=== PATIENT | male | born 1975 | race American Indian/Alaskan Native ===

== ENCOUNTER 2019-01-26 08:44 | Emergency (ER) | payer SELFPAY ==
[2019-01-26 08:51] VITALS: BP 122/82
[2019-01-26] MEDS ORDERED: ALBUTEROL 2.5 MG/3 ML NEBU IH ONE (09:11)
--- NOTE | 2019-01-26 09:35 | Emergency Department Report ---
ED General Adult HPI - General Chief complaint: Upper Respiratory Infection Stated complaint: CHEST PAIN/RT KNEE PAIN/COUGH Time Seen by Provider: 01/26/19 09:06 Source: patient, EMS Mode of arrival: Ambulatory Limitations: No Limitations - History of Present Illness Initial comments: She is a 43-year-old male who presents with cough and chest pain for the last 3 weeks patient states that he's and out of his asthma medication patient's cough is moderate nothing makes it better and nothing makes it worse. Patient also has been having productive yellow mucus when he coughs. Patient also is complaining of right knee pain and swelling that's been going on since he was 17. He states that he was supposed to get surgery on it some years ago but he did not have any surgery on his knee. - Related Data Previous Rx's Medication Instructions Recorded Last Taken Type ALBUTEROL Inhaler (OR & NICU) 1 puff IH Q6H #1 inha 01/26/19 Unknown Rx [ProAir HFA Inhaler] ALBUTEROL NEB's [Proventil 0.083% 2.5 mg IH TID PRN #1 box 01/26/19 Unknown Rx NEBS] Nebulizer and Compressor [[place] 1 each MC Q6HR #1 each 01/26/19 Unknown Rx Choice Nebulizer] predniSONE [Deltasone] 20 mg PO BID #10 tab 01/26/19 Unknown Rx Allergies Allergy/AdvReac Type Severity Reaction Status Date / Time No Known Allergies Allergy Unverified 01/26/19 08:46 ED Review of Systems ROS: Stated complaint: CHEST PAIN/RT KNEE PAIN/COUGH Other details as noted in HPI Constitutional: denies: chills, fever Eyes: denies: eye pain, eye discharge, vision change ENT: denies: ear pain, throat pain Respiratory: cough, shortness of breath. denies: wheezing Cardiovascular: denies: chest pain, palpitations Endocrine: no symptoms reported Gastrointestinal: denies: abdominal pain, nausea, diarrhea Genitourinary: denies: urgency, dysuria Musculoskeletal: joint swelling. denies: back pain, arthralgia Skin: denies: rash, lesions Neurological: denies: headache, weakness, paresthesias Psychiatric: denies: anxiety, depression Hematological/Lymphatic: denies: easy bleeding, easy bruising ED Past Medical Hx - Past Medical History Previous Medical History?: Yes Hx Hypertension: Yes Hx Asthma: Yes - Surgical History Past Surgical History?: Yes Additional Surgical History: Abdominal, Carpel tunnel yony.,Yony leg - Social History Smoking Status: Current Every Day Smoker Substance Use Type: Alcohol, Prescribed - Medications Home Medications: Home Medications Medication Instructions Recorded Confirmed Last Taken Type ALBUTEROL Inhaler (OR & NICU) 1 puff IH Q6H #1 inha 01/26/19 Unknown Rx [ProAir HFA Inhaler] ALBUTEROL NEB's [Proventil 0.083% 2.5 mg IH TID PRN #1 box 01/26/19 Unknown Rx NEBS] Nebulizer and Compressor [[place] 1 each MC Q6HR #1 each 01/26/19 Unknown Rx Choice Nebulizer] predniSONE [Deltasone] 20 mg PO BID #10 tab 01/26/19 Unknown Rx ED Physical Exam - General Limitations: No Limitations General appearance: alert, in no apparent distress - Head Head exam: Present: atraumatic, normocephalic - Eye Eye exam: Present: normal appearance - ENT ENT exam: Present: mucous membranes moist - Neck Neck exam: Present: normal inspection - Respiratory Respiratory exam: Present: normal lung sounds bilaterally. Absent: respiratory distress - Cardiovascular Cardiovascular Exam: Present: regular rate, normal rhythm. Absent: systolic murmur, diastolic murmur, rubs, gallop - GI/Abdominal GI/Abdominal exam: Present: soft, normal bowel sounds - Rectal Rectal exam: Present: deferred - Extremities Exam Extremities exam: Present: normal inspection - Back Exam Back exam: Present: normal inspection - Neurological Exam Neurological exam: Present: alert, oriented X3 - Psychiatric Psychiatric exam: Present: normal affect, normal mood - Skin Skin exam: Present: warm, dry, intact, normal color. Absent: rash ED Course Vital Signs 01/26/19 01/26/19 08:46 10:39 Temperature 97.9 F Pulse Rate 86 Pulse Rate [ 86 Anterior Bilateral Throughout] Respiratory 18 Rate Respiratory 19 Rate [Anterior Bilateral Throughout] Blood Pressure 122/82 O2 Sat by Pulse 99 Oximetry ED Medical Decision Making - Lab Data Result diagrams: 01/26/19 09:17 01/26/19 09:17 Lab Results 01/26/19 01/26/19 Range/Units 09:17 09:17 WBC 5.5 (4.5-11.0) K/mm3 RBC 4.89 (3.65-5.03) M/mm3 Hgb 13.4 (11.8-15.2) gm/dl Hct 40.8 (35.5-45.6) % MCV 84 (84-94) fl MCH 27 L (28-32) pg MCHC 33 (32-34) % RDW 20.6 H (13.2-15.2) % Plt Count 145 (140-440) K/mm3 Lymph % (Auto) 45.5 H (13.4-35.0) % Mcmullen % (Auto) 8.5 H (0.0-7.3) % Eos % (Auto) 1.4 (0.0-4.3) % Baso % (Auto) 0.4 (0.0-1.8) % Lymph # 2.5 (1.2-5.4) K/mm3 Mcmullen # 0.5 (0.0-0.8) K/mm3 Eos # 0.1 (0.0-0.4) K/mm3 Baso # 0.0 (0.0-0.1) K/mm3 Seg Neutrophils % 44.2 (40.0-70.0) % Seg Neutrophils # 2.4 (1.8-7.7) K/mm3 Sodium 142 (137-145) mmol/L Potassium 4.3 (3.6-5.0) mmol/L Chloride 104.6 (98-107) mmol/L Carbon Dioxide 21 L (22-30) mmol/L Anion Gap 21 mmol/L BUN 13 (9-20) mg/dL Creatinine 0.7 L (0.8-1.5) mg/dL Estimated GFR > 60 ml/min BUN/Creatinine Ratio 19 % Glucose 81 (75-100) mg/dL Calcium 8.9 (8.4-10.2) mg/dL Total Bilirubin 0.30 (0.1-1.2) mg/dL AST 36 (5-40) units/L ALT 25 (7-56) units/L Alkaline Phosphatase 76 (35-129) units/L Troponin T < 0.010 (0.00-0.029) ng/mL Total Protein 8.5 H (6.3-8.2) g/dL Albumin 4.5 (3.9-5) g/dL Albumin/Globulin Ratio 1.1 % - EKG Data -: EKG Interpreted by Me - EKG Data 01/26/19 11:06 EKG shows normal sinus rhythm signs of early re-pole no ST segment elevation no T wave inversion impression normal EKG - Radiology Data Radiology results: report reviewed, image reviewed Chest x-ray: Shows no acute cardiopulmonary disease Knee x-ray: Shows 2 linear radiopaque bodies however no fracture or dislocation - Medical Decision Making Chief medical diagnosis: Bronchitis Differential medical diagnosis: Pneumonia, non-STEMI, osteoarthritis I will get x-rays of knee, blood work, I'll get chest x-ray BREATHING treatment also give patient prednisone and I'll send patient home with medication refills. Blood work is unremarkable she agrees with plan to discharge. Additional verbal discharge instructions were given. Critical care attestation.: If time is entered above; I have spent that time in minutes in the direct care of this critically ill patient, excluding procedure time. ED Disposition Clinical Impression: Cough, SOB (shortness of breath) Right knee pain Qualifiers: Chronicity: chronic Qualified Code(s): M25.561 - Pain in right knee; G89.29 - Other chronic pain Disposition: DC-01 TO HOME OR SELFCARE Is pt being admited?: No Does the pt Need Aspirin: No Condition: Stable Prescriptions: Nebulizer and Compressor [Bedias Choice Nebulizer] 1 each MC Q6HR #1 each predniSONE [Deltasone] 20 mg PO BID #10 tab ALBUTEROL Inhaler (OR & NICU) [ProAir HFA Inhaler] 1 puff IH Q6H #1 inha ALBUTEROL NEB's [Proventil 0.083% NEBS] 2.5 mg IH TID PRN #1 box PRN Reason: Wheezing Referrals: ROSALIE LIND MD [Staff Physician] - 3-5 Days DYLON MANZANO MD [Referring] - 3-5 Days
--- NOTE | 2019-01-26 10:00 | XRay Report ---
CHEST 2 VIEWS INDICATION / CLINICAL INFORMATION: cough. COMPARISON: Chest x-ray 07/23/2011 FINDINGS: SUPPORT DEVICES: None. HEART / MEDIASTINUM: No significant abnormality. LUNGS / PLEURA: No significant pulmonary or pleural abnormality. No pneumothorax. ADDITIONAL FINDINGS: No significant additional findings. IMPRESSION: 1. No acute findings. Signer Name: Philipp Cortes MD Signed: 01/26/2019 9:56 AM Workstation Name: [email or web address]
--- NOTE | 2019-01-26 10:02 | XRay Report ---
RIGHT KNEE 4 VIEWS INDICATION / CLINICAL INFORMATION: knee pain. COMPARISON: None available. FINDINGS: 2 linear radiopaque 1 bodies are seen within the anterolateral aspect of Hoffa's fat pad. No fracture , dislocation or right knee effusion is present. Signer Name: Philipp Cortes MD Signed: 01/26/2019 9:58 AM Workstation Name: [id number]
[2019-01-26 10:14] LABS: Alanine Aminotransferase 25 units/L (7-56); Albumin 4.5 g/dL (3.9-5); BUN/Creatinine Ratio 19; Blood Urea Nitrogen 13 mg/dL (9-20); Calcium 8.9 mg/dL (8.4-10.2); Hemolysis Index 0
[2019-01-26 10:23] LABS: Basophils % (Auto) 0.4 % (0.0-1.8); Eosinophils # (Auto) 0.1 K/mm3 (0.0-0.4); Eosinophils % (Auto) 1.4 % (0.0-4.3); Hematocrit 40.8 % (35.5-45.6); Hemoglobin 13.4 gm/dl (11.8-15.2); Lymphocytes # (Auto) 2.5 K/mm3 (1.2-5.4); Lymphocytes % (Auto) 45.5 % (13.4-35.0); Mean Corpuscular HGB Conc 33 % (32-34); Mean Corpuscular Volume 84 fl (84-94); Monocytes # (Auto) 0.5 K/mm3 (0.0-0.8); Monocytes % (Auto) 8.5 % (0.0-7.3); Red Blood Count 4.89 M/mm3 (3.65-5.03)
[2019-01-26 10:31] LABS: Red Cell Distribution Width 20.6 % (13.2-15.2)
[2019-01-26 10:32] LABS: Platelet Count 145 K/mm3 (140-440)
[2019-01-26] MEDS ORDERED: predniSONE 20 MG TAB PO ONE (11:12)
== END 2019-01-26 12:39 | disposition home or self-care (01) ==
LOC: ED 08:44
DX: R05 Cough (principal); R06.02 Shortness of breath; M25.561 Pain in right knee; G89.29 Other chronic pain
CPT/HCPCS: 36415; 71046; 73562; 80053; 84484; 85025; 93005; 93010; 94644; 99284; J7512

== ENCOUNTER 2019-08-11 21:38 | Emergency (ER) | payer SELFPAY ==
[2019-08-11] MEDS ORDERED: traMADol 50 MG TAB PO ONE (22:14)
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
[2019-08-11] MEDS ORDERED: NEOMY 3.5 MG/BACIT 400 UNITS/POLY B 5000 UNITS/GM OINT PACKET TP ONE (22:30)
[2019-08-11] MEDS ORDERED: SODIUM CHLORIDE 0.9% 1000 ML 1,000 ML IV ONE (22:50)
[2019-08-11] MEDS ORDERED: SODIUM CHLORIDE 0.9% 1000 ML 1,000 ML ONE (22:52)
[2019-08-11 22:59] LABS: Basophils % (Auto) 0.5 % (0.0-1.8); Hematocrit 44.2 % (35.5-45.6); Hemoglobin 14.8 gm/dl (11.8-15.2); Lymphocytes # (Auto) 1.2 K/mm3 (1.2-5.4); Lymphocytes % (Auto) 19.3 % (13.4-35.0); Mean Corpuscular HGB Conc 34 % (32-34); Mean Corpuscular Volume 98 fl (84-94); Monocytes # (Auto) 0.3 K/mm3 (0.0-0.8); Monocytes % (Auto) 5.6 % (0.0-7.3); Platelet Count 136 K/mm3 (140-440); Red Cell Distribution Width 15.8 % (13.2-15.2)
[2019-08-11 23:07] LABS: BUN/Creatinine Ratio 14; Blood Urea Nitrogen 10 mg/dL (9-20); Calcium 9.2 mg/dL (8.4-10.2); Hemolysis Index 5
[2019-08-12] MEDS ORDERED: ONDANSETRON 4 MG/2 ML INJ IV ONE (00:07)
[2019-08-12 00:59] VITALS: BP 151/94
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
== END 2019-08-12 01:38 | disposition home or self-care (01) ==
LOC: ED 21:38
DX: S60.512A Abrasion of left hand, initial encounter (principal); S20.219A Contusion of unspecified front wall of thorax, initial encounter; S30.1XXA Contusion of abdominal wall, initial encounter; I10 Essential (primary) hypertension; J45.909 Unspecified asthma, uncomplicated; F17.200 Nicotine dependence, unspecified, uncomplicated; Z98.890 Other specified postprocedural states; Z79.899 Other long term (current) drug therapy; V89.2XXA Person injured in unspecified motor-vehicle accident, traffic, initial encounter; Y93.89 Activity, other specified; Y92.410 Unspecified street and highway as the place of occurrence of the external cause; Y99.8 Other external cause status
CPT/HCPCS: 36415; 71260; 74160; 80048; 85025; 93005; 96374; 99284; J2405; J7030; Q9967; A6250

== ENCOUNTER 2019-09-10 11:43 | Emergency (ER) | payer SELFPAY ==
[2019-09-10 12:08] VITALS: BP 164/112
== END 2019-09-10 13:45 | disposition left against medical advice (07) ==
LOC: ED 11:43
DX: M25.542 Pain in joints of left hand (principal); Z53.21 Procedure and treatment not carried out due to patient leaving prior to being seen by health care provider

== ENCOUNTER 2020-01-12 00:05 | Emergency (ER) | payer SELFPAY ==
[2020-01-12] MEDS ORDERED: ONDANSETRON 4 MG/2 ML INJ IV ONE (00:34)
[2020-01-12] MEDS ORDERED: HYDROmorphone 1 MG/1 ML INJ IV ONE ×2 (00:45→02:08)
[2020-01-12 01:02] LABS: Basophils % (Auto) 0.9 % (0.0-1.8); Eosinophils % (Auto) 0.7 % (0.0-4.3); Hematocrit 39.7 % (35.5-45.6); Hemoglobin 13.5 gm/dl (11.8-15.2); Lymphocytes % (Auto) 41.9 % (13.4-35.0); Mean Corpuscular HGB Conc 34 % (32-34); Mean Corpuscular Volume 100 fl (84-94); Monocytes # (Auto) 0.6 K/mm3 (0.0-0.8); Monocytes % (Auto) 12.2 % (0.0-7.3); Platelet Count 153 K/mm3 (140-440); Red Blood Count 3.97 M/mm3 (3.65-5.03); Red Cell Distribution Width 15.2 % (13.2-15.2)
[2020-01-12] MEDS ORDERED: THIAMINE 100 MG, FOLIC ACID 1 MG, MULTIPLE VITAMIN INJ, ADULT 10 ML in SODIUM CHLORIDE ... IV ONE (01:15)
[2020-01-12 01:17] LABS: Alanine Aminotransferase 125 units/L (7-56); Albumin 4.6 g/dL (3.9-5); Blood Urea Nitrogen 8 mg/dL (9-20); Calcium 9.3 mg/dL (8.4-10.2); Hemolysis Index 3
[2020-01-12 01:18] LABS: BUN/Creatinine Ratio 13
[2020-01-12] MEDS ORDERED: MAGNESIUM SULFATE 2 GM/50 ML BAG IV ONE (01:27)
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
[2020-01-12 01:37] LABS: Bilirubin,Urine NEG (Negative); Blood,Urine SM (Negative); Color,Urine Colorless (Yellow); Protein,Urine <15 mg/dL mg/dL (Negative); Urobilinogen,Urine < 2.0 mg/dL (<2.0); WBC,Urine < 1.0 /HPF (0.0-6.0)
[2020-01-12 01:44] LABS: Amphetamine Screen,Urine PRESUMPTIVE NEGATIVE; Benzodiazepines Screen,Urine PRESUMPTIVE NEGATIVE; Cannabinoid Screen,Urine PRESUMPTIVE NEGATIVE; Cocaine Screen,Urine PRESUMPTIVE NEGATIVE; Methadone Screen,Urine PRESUMPTIVE NEGATIVE; Opiate Screen,Urine PRESUMPTIVE NEGATIVE
[2020-01-12 01:50] LABS: RBC,Urine < 1.0 /HPF (0.0-6.0)
--- NOTE | 2020-01-12 01:59 | Emergency Department Report ---
ED Abdominal Pain HPI - General Chief Complaint: Abdominal Pain Stated Complaint: ABDOMINAL PAIN Time Seen by Provider: 01/12/20 00:29 Source: EMS Mode of arrival: Stretcher Limitations: No Limitations - History of Present Illness Initial Comments: 44-year-old male with a past medical history of alcohol abuse with liver cirrhosis, peptic ulcer disease enlarged heart, previous abdominal surgeries to "reconstruct his insides due to constipation", asthma, and hypertension presents to the hospital complaining of ongoing abdominal pain with intermittent nausea vomiting x1 month that worsened tonight. Patient denies hematemesis but states he has noticed black stool. Symptoms have been ongoing since trying to taper down his alcohol use. Patient is also being managed by a physician at [facility] and was prescribed medication to assist with alcohol detox. Patient could not tolerate the medication and continued to have nausea and vomiting. 1 week ago they prescribed a sublingual medication for detox symptoms but patient has yet to fill the medication. Tonight pain worsened and he complains of generalized abdominal pain it is constant, severe, worse with palpation. He had 2 cups of liquor and 1 beer prior to arrival. He was told by his doctor to decrease his alcohol intake but to drink whenever he has symptoms of withdrawal. Patient denies diagnosis of pancreatitis in the past. - Related Data Previous Rx's Medication Instructions Recorded Last Taken Type ALBUTEROL NEB's [Proventil 0.083% 2.5 mg IH TID PRN #1 box 01/26/19 Unknown Rx NEBS] Albuterol Mdi (or & Nicu Only) 1 puff IH Q6H #1 inha 01/26/19 Unknown Rx [ProAir HFA Inhaler] Nebulizer and Compressor [[place] 1 each MC Q6HR #1 each 01/26/19 Unknown Rx Choice Nebulizer] predniSONE [Deltasone] 20 mg PO BID #10 tab 01/26/19 Unknown Rx Cyclobenzaprine [Flexeril] 10 mg PO QHS PRN #10 tablet 08/12/19 Unknown Rx Naproxen 500 mg PO Q12H PRN #12 tablet 08/12/19 Unknown Rx traMADoL [Ultram] 50 mg PO Q6HR PRN #7 tablet 10/25/19 Unknown Rx Famotidine [Pepcid] 20 mg PO BID #20 tablet 01/12/20 Unknown Rx HYDROcodone/APAP 5-325 [[place] 1 each PO Q6HR PRN #10 tablet 01/12/20 Unknown Rx 5/325] Ondansetron [Zofran Odt] 4 mg PO Q8HR PRN #20 tab.rapdis 01/12/20 Unknown Rx Allergies Allergy/AdvReac Type Severity Reaction Status Date / Time No Known Allergies Allergy Unverified 01/26/19 08:46 ED Review of Systems ROS: Stated complaint: ABDOMINAL PAIN Other details as noted in HPI Comment: All other systems reviewed and negative ED Past Medical Hx - Past Medical History Previous Medical History?: Yes Hx Hypertension: Yes Hx Liver Disease: Yes (cirrohsis) Hx Asthma: Yes Additional medical history: enlarged heart. liver problems. carpal tunnel - Surgical History Past Surgical History?: Yes Additional Surgical History: Abdominal, Carpel tunnel yony.,Yony leg - Social History Smoking Status: Current Every Day Smoker Substance Use Type: Alcohol - Medications Home Medications: Home Medications Medication Instructions Recorded Confirmed Last Taken Type ALBUTEROL NEB's [Proventil 0.083% 2.5 mg IH TID PRN #1 box 01/26/19 Unknown Rx NEBS] Albuterol Mdi (or & Nicu Only) 1 puff IH Q6H #1 inha 01/26/19 Unknown Rx [ProAir HFA Inhaler] Nebulizer and Compressor [[place] 1 each MC Q6HR #1 each 01/26/19 Unknown Rx Choice Nebulizer] predniSONE [Deltasone] 20 mg PO BID #10 tab 01/26/19 Unknown Rx Cyclobenzaprine [Flexeril] 10 mg PO QHS PRN #10 tablet 08/12/19 Unknown Rx Naproxen 500 mg PO Q12H PRN #12 tablet 08/12/19 Unknown Rx traMADoL [Ultram] 50 mg PO Q6HR PRN #7 tablet 10/25/19 Unknown Rx Famotidine [Pepcid] 20 mg PO BID #20 tablet 01/12/20 Unknown Rx HYDROcodone/APAP 5-325 [[place] 1 each PO Q6HR PRN #10 tablet 01/12/20 Unknown Rx 5/325] Ondansetron [Zofran Odt] 4 mg PO Q8HR PRN #20 tab.rapdis 01/12/20 Unknown Rx ED Physical Exam - General Limitations: No Limitations - Other Other exam information: General: No acute distress Head: Atraumatic Eyes: normal appearance, nonicteric sclera ENT: Moist mucous membranes Neck: Normal appearance, no midline tenderness Chest: Clear to auscultation bilaterally CV: Regular rate and rhythm Abdomen: Soft, normal bowel sounds, lower abdominal scar noted from previous surgery. Generalized abdominal tenderness, nondistended, no rebound or guarding Rectal: Guaiac negative brown stool Back: Normal inspection Extremity: Normal inspection, full range of motion Neuro: Alert O x 3, no facial asymmetry, speech clear, no gross motor sensory de ficit Psych: Appropriate behavior Skin: No rash ED Course Vital Signs 01/12/20 01/12/20 00:17 02:04 Temperature 98.2 F Pulse Rate 83 89 Respiratory 15 16 Rate Blood Pressure 167/107 154/80 [left arm] O2 Sat by Pulse 98 95 Oximetry ED Medical Decision Making - Lab Data Result diagrams: 01/12/20 00:43 01/12/20 00:43 Lab Results 01/12/20 01/12/20 01/12/20 Range/Units 00:43 00:43 00:43 WBC 4.7 (4.5-11.0) K/mm3 RBC 3.97 (3.65-5.03) M/mm3 Hgb 13.5 (11.8-15.2) gm/dl Hct 39.7 (35.5-45.6) % MCV 100 H (84-94) fl MCH 34 H (28-32) pg MCHC 34 (32-34) % RDW 15.2 (13.2-15.2) % Plt Count 153 (140-440) K/mm3 Lymph % (Auto) 41.9 H (13.4-35.0) % [place] % (Auto) 12.2 H (0.0-7.3) % Eos % (Auto) 0.7 (0.0-4.3) % Baso % (Auto) 0.9 (0.0-1.8) % Lymph # 2.0 (1.2-5.4) K/mm3 [place] # 0.6 (0.0-0.8) K/mm3 Eos # 0.0 (0.0-0.4) K/mm3 Baso # 0.0 (0.0-0.1) K/mm3 Seg Neutrophils % 44.3 (40.0-70.0) % Seg Neutrophils # 2.1 (1.8-7.7) K/mm3 Sodium 145 (137-145) mmol/L Potassium 4.1 (3.6-5.0) mmol/L Chloride 104.6 (98-107) mmol/L Carbon Dioxide 26 (22-30) mmol/L Anion Gap 19 mmol/L BUN 8 L (9-20) mg/dL Creatinine 0.6 L (0.8-1.3) mg/dL Estimated GFR > 60 ml/min BUN/Creatinine Ratio 13 % Glucose 87 (75-100) mg/dL POC Glucose (70-105) Calcium 9.3 (8.4-10.2) mg/dL Magnesium 1.60 L (1.7-2.3) mg/dL Total Bilirubin 0.30 (0.1-1.2) mg/dL AST 131 H (5-40) units/L ALT 125 H (7-56) units/L Alkaline Phosphatase 74 (35-129) units/L Total Protein 7.8 (6.3-8.2) g/dL Albumin 4.6 (3.9-5) g/dL Albumin/Globulin Ratio 1.4 % Lipase 65 H (13-60) units/L Urine Color (Yellow) Urine Turbidity (Clear) Urine pH (5.0-7.0) Ur Specific [place] (1.003-1.030) Urine Protein (Negative) mg/dL Urine Glucose (UA) (Negative) mg/dL Urine Ketones (Negative) mg/dL Urine Blood (Negative) Urine Nitrite (Negative) Urine Bilirubin (Negative) Urine Urobilinogen (<2.0) mg/dL Ur Leukocyte Esterase (Negative) Urine WBC (Auto) (0.0-6.0) /HPF Urine RBC (Auto) (0.0-6.0) /HPF Urine Opiates Screen Urine Methadone Screen Ur Barbiturates Screen Ur Phencyclidine Scrn Ur Amphetamines Screen U Benzodiazepines Scrn Urine Cocaine Screen U Marijuana (THC) Screen Drugs of Abuse Note Plasma/Serum Alcohol 0.34 H (0-0.07) % 01/12/20 01/12/20 01/12/20 Range/Units 00:53 Unknown Unknown WBC (4.5-11.0) K/mm3 RBC (3.65-5.03) M/mm3 Hgb (11.8-15.2) gm/dl Hct (35.5-45.6) % MCV (84-94) fl MCH (28-32) pg MCHC (32-34) % RDW (13.2-15.2) % Plt Count (140-440) K/mm3 Lymph % (Auto) (13.4-35.0) % [place] % (Auto) (0.0-7.3) % Eos % (Auto) (0.0-4.3) % Baso % (Auto) (0.0-1.8) % Lymph # (1.2-5.4) K/mm3 [place] # (0.0-0.8) K/mm3 Eos # (0.0-0.4) K/mm3 Baso # (0.0-0.1) K/mm3 Seg Neutrophils % (40.0-70.0) % Seg Neutrophils # (1.8-7.7) K/mm3 Sodium (137-145) mmol/L Potassium (3.6-5.0) mmol/L Chloride (98-107) mmol/L Carbon Dioxide (22-30) mmol/L Anion Gap mmol/L BUN (9-20) mg/dL Creatinine (0.8-1.3) mg/dL Estimated GFR ml/min BUN/Creatinine Ratio % Glucose (75-100) mg/dL POC Glucose 72 (70-105) Calcium (8.4-10.2) mg/dL Magnesium (1.7-2.3) mg/dL Total Bilirubin (0.1-1.2) mg/dL AST (5-40) units/L ALT (7-56) units/L Alkaline Phosphatase (35-129) units/L Total Protein (6.3-8.2) g/dL Albumin (3.9-5) g/dL Albumin/Globulin Ratio % Lipase (13-60) units/L Urine Color Colorless (Yellow) Urine Turbidity Clear (Clear) Urine pH 6.0 (5.0-7.0) Ur Specific [place] 1.002 L (1.003-1.030) Urine Protein <15 mg/dl (Negative) mg/dL Urine Glucose (UA) Neg (Negative) mg/dL Urine Ketones Neg (Negative) mg/dL Urine Blood Sm (Negative) Urine Nitrite Neg (Negative) Urine Bilirubin Neg (Negative) Urine Urobilinogen < 2.0 (<2.0) mg/dL Ur Leukocyte Esterase Neg (Negative) Urine WBC (Auto) < 1.0 (0.0-6.0) /HPF Urine RBC (Auto) < 1.0 (0.0-6.0) /HPF Urine Opiates Screen Presumptive negative Urine Methadone Screen Presumptive negative Ur Barbiturates Screen Presumptive negative Ur Phencyclidine Scrn Presumptive negative Ur Amphetamines Screen Presumptive negative U Benzodiazepines Scrn Presumptive negative Urine Cocaine Screen Presumptive negative U Marijuana (THC) Screen Presumptive negative Drugs of Abuse Note Disclamer Plasma/Serum Alcohol (0-0.07) % - Radiology Data Radiology results: report reviewed CT ABDOMEN AND PELVIS WITHOUT CONTRAST INDICATION: gen abd pain,n,v, etoh abuse and hx of abd surgery. TECHNIQUE: Axial CT images were obtained through the abdomen and pelvis without IV contrast. All CT scans at this location are performed using CT dose reduction for ALARA by means of automated exposure control. COMPARISON: CT abdomen 08/12/2019 FINDINGS: LOWER CHEST: No significant abnormality. LIVER: Moderate decreased attenuation throughout liver characteristic for steatosis. GALLBLADDER: No significant abnormality. BILE DUCTS: No significant abnormality. PANCREAS: No significant abnormality. SPLEEN: No significant abnormality. ADRENALS: No significant abnormality. RIGHT KIDNEY and URETER: No significant abnormality. LEFT KIDNEY and URETER: No significant abnormality. STOMACH and SMALL BOWEL: No significant abnormality. COLON: No anastomotic suture line within rectosigmoid junction. APPENDIX: Normal. PERITONEUM: No free fluid. No free air. No fluid collection. LYMPH NODES: No significant adenopathy. AORTA and ARTERIES: No significant abnormality. IVC and VEINS: No significant abnormality. URINARY BLADDER: No significant abnormality. REPRODUCTIVE ORGANS: No significant abnormality. ADDITIONAL FINDINGS: Small linear ossific density within left paraspinal muscle image 82 measuring 2.4 cm likely represents heterotopic ossification from previous traumatic injury/strain SKELETAL SYSTEM: Nonaggressive fibro-osseous lesion right iliac bone of doubtful clinical significance possibly representing fibrous dysplasia. IMPRESSION: 1. No significant abnormality. 2. Hepatic steatosis. - Medical Decision Making Patient presents to the hospital with ongoing abdominal pain, nausea, and vomiting while trying to decrease alcohol intake. Patient presents to the ED with elevated alcohol level and generalized abdominal pain. No reports of hematemesis but black stool reported. Stool was brown, guaiac negative with a normal H&H. No signs of active bleeding at this time only lab abnormalities are mild hypomagnesemia, elevated LFTs, and very mild elevation in lipase. Patient reports adverse reaction to IV dye therefore CT abdomen pelvis performed without IV contrast. No other acute findings other than hepatic steatosis. Patient feeling much better with ED treatment of Dilaudid, Zofran, IV fluids, magnesium, and IV Pepcid. Patient tolerating fluid intake prior to d/c. BP improved Critical Care Time: No Critical care attestation.: If time is entered above; I have spent that time in minutes in the direct care of this critically ill patient, excluding procedure time. ED Disposition Clinical Impression: Alcohol intoxication, Alcohol abuse, Nausea & vomiting, Abdominal pain Disposition: TO HOME OR SELFCARE Is pt being admited?: No Does the pt Need Aspirin: No Condition: Stable Instructions: Abuse of Alcohol (ED), Abdominal Pain (ED), Acute Nausea and Vomiting (ED) Additional Instructions: Take the medication as prescribed. Follow-up with your doctor or doctor/clinic provided. Return if symptoms worsen as indicated by your discharge instructions. Prescriptions: HYDROcodone/APAP 5-325 [[place] 5/325] 1 each PO Q6HR PRN #10 tablet PRN Reason: Pain Famotidine [Pepcid] 20 mg PO BID #20 tablet Ondansetron [Zofran Odt] 4 mg PO Q8HR PRN #20 tab.rapdis PRN Reason: Nausea And Vomiting Referrals: PRIMARY CARE, [Primary Care Provider] - 3-5 Days Time of Disposition: 03:33
[2020-01-12] MEDS ORDERED: FAMOTIDINE 20 MG/2 ML INJ IV ONE (02:01)
[2020-01-12 02:05] VITALS: BP 154/80
== END 2020-01-12 03:35 | disposition home or self-care (01) ==
LOC: ED 00:05
DX: R10.84 Generalized abdominal pain (principal); R11.2 Nausea with vomiting, unspecified; F10.129 Alcohol abuse with intoxication, unspecified; I10 Essential (primary) hypertension; J45.909 Unspecified asthma, uncomplicated; F17.200 Nicotine dependence, unspecified, uncomplicated; Z79.899 Other long term (current) drug therapy
CPT/HCPCS: 36415; 74176; 80053; 80307; 81001; 82271; 82962; 83690; 83735; 85025; 96365; 96368; 96375; 96376; 99283; J1170; J2405; J3411; J3475; J7030; 80320; G0480

== ENCOUNTER 2021-04-17 17:39 | Emergency (ER) | payer SELFPAY ==
[2021-04-17 17:46] VITALS: BP 154/92
--- NOTE | 2021-04-17 18:15 | Emergency Department Report ---
ED Male HPI - General Chief complaint: Medical Clearance Stated complaint: REQUESTING STD TEST Time Seen by Provider: 04/17/21 17:55 Source: EMS Mode of arrival: Ambulatory Limitations: No Limitations - History of Present Illness Initial comments: Patient is a 45-year-old male presents emergency room with complaints of seeing a small amount of blood in his ejaculate when he was masturbating. He states he is also been having some mild lower abdominal discomfort. He denies any dysuria, penile discharge, pain or swelling in the testicles, fever, nausea, vomiting, diarrhea, hematuria, urinary retention. Patient reports that he wants STD testing to prove to his that he is not cheating. He denies any medication allergies. - Related Data Previous Rx's Medication Instructions Recorded Last Taken Type ALBUTEROL NEB's [Proventil 0.083% 2.5 mg IH TID PRN #1 box 01/26/19 Unknown Rx NEBS] Albuterol Mdi (or & Nicu Only) 1 puff IH Q6H #1 inha 01/26/19 Unknown Rx [ProAir HFA Inhaler] Nebulizer and Compressor [[place] 1 each MC Q6HR #1 each 01/26/19 Unknown Rx Choice Nebulizer] predniSONE [Deltasone] 20 mg PO BID #10 tab 01/26/19 Unknown Rx Cyclobenzaprine [Flexeril] 10 mg PO QHS PRN #10 tablet 08/12/19 Unknown Rx Naproxen 500 mg PO Q12H PRN #12 tablet 08/12/19 Unknown Rx traMADoL [Ultram] 50 mg PO Q6HR PRN #7 tablet 10/25/19 Unknown Rx Famotidine [Pepcid] 20 mg PO BID #20 tablet 01/12/20 Unknown Rx HYDROcodone/APAP 5-325 [[place] 1 each PO Q6HR PRN #10 tablet 01/12/20 Unknown Rx 5/325] Ondansetron [Zofran Odt] 4 mg PO Q8HR PRN #20 tab.rapdis 01/12/20 Unknown Rx Allergies Allergy/AdvReac Type Severity Reaction Status Date / Time No Known Allergies Allergy Unverified 01/26/19 08:46 ED Review of Systems ROS: Stated complaint: REQUESTING STD TEST Other details as noted in HPI Comment: All other systems reviewed and negative ED Past Medical Hx - Past Medical History Hx Hypertension: Yes Hx Liver Disease: Yes (cirrohsis) Hx Asthma: Yes Additional medical history: enlarged heart. liver problems. carpal tunnel - Surgical History Additional Surgical History: Abdominal, Carpel tunnel yony.,Yony leg - Social History Smoking Status: Current Every Day Smoker Substance Use Type: Alcohol - Medications Home Medications: Home Medications Medication Instructions Recorded Confirmed Last Taken Type ALBUTEROL NEB's [Proventil 0.083% 2.5 mg IH TID PRN #1 box 01/26/19 Unknown Rx NEBS] Albuterol Mdi (or & Nicu Only) 1 puff IH Q6H #1 inha 01/26/19 Unknown Rx [ProAir HFA Inhaler] Nebulizer and Compressor [[place] 1 each MC Q6HR #1 each 01/26/19 Unknown Rx Choice Nebulizer] predniSONE [Deltasone] 20 mg PO BID #10 tab 01/26/19 Unknown Rx Cyclobenzaprine [Flexeril] 10 mg PO QHS PRN #10 tablet 08/12/19 Unknown Rx Naproxen 500 mg PO Q12H PRN #12 tablet 08/12/19 Unknown Rx traMADoL [Ultram] 50 mg PO Q6HR PRN #7 tablet 10/25/19 Unknown Rx Famotidine [Pepcid] 20 mg PO BID #20 tablet 01/12/20 Unknown Rx HYDROcodone/APAP 5-325 [[place] 1 each PO Q6HR PRN #10 tablet 01/12/20 Unknown Rx 5/325] Ondansetron [Zofran Odt] 4 mg PO Q8HR PRN #20 tab.rapdis 01/12/20 Unknown Rx ED Physical Exam - General Limitations: No Limitations General appearance: alert, in no apparent distress - Head Head exam: Present: atraumatic, normocephalic - Eye Eye exam: Present: normal appearance - ENT ENT exam: Present: mucous membranes moist - Respiratory Respiratory exam: Present: normal lung sounds bilaterally. Absent: respiratory distress, wheezes, rales, rhonchi, stridor, chest wall tenderness, accessory muscle use, decreased breath sounds, prolonged expiratory - Cardiovascular Cardiovascular Exam: Present: regular rate, normal rhythm, normal heart sounds. Absent: systolic murmur, diastolic murmur, rubs, gallop - GI/Abdominal GI/Abdominal exam: Present: soft, normal bowel sounds, other (healed horizontal surgical scar to the lower abdomen). Absent: distended, tenderness, guarding, rebound, rigid - exam: Present: other (emg technician: henri, dental billing specialist, no testicular ttp, no scrotal edema, no lesions or blisters, no drainage from the penis, no skin changes, normal testicular lie, normal cremasteric reflex). Absent: testicular tenderness, urethral discharge, scrotal swelling External exam: Present: normal external exam - Neurological Exam Neurological exam: Present: alert, oriented X3 - Psychiatric Psychiatric exam: Present: normal affect, normal mood - Skin Skin exam: Present: warm, dry, intact ED Course Vital Signs 04/17/21 17:40 Temperature 98.5 F Pulse Rate 76 Respiratory 18 Rate Blood Pressure 154/92 [Left] O2 Sat by Pulse 100 Oximetry ED Medical Decision Making - Medical Decision Making Patient is a 45-year-old male presents emergency room with complaints of seeing a small amount of blood in his ejaculate when he was masturbating. He states he is also been having some mild lower abdominal discomfort. He denies any dysuria, penile discharge, pain or swelling in the testicles, fever, nausea, vomiting, diarrhea, hematuria, urinary retention. Patient reports that he wants STD testing to prove to his that he is not cheating. He denies any medication allergies. Vitals are stable. No abdominal tenderness on exam, on exam emg technician: henri, dental billing specialist, no testicular ttp, no scrotal edema, no lesions or blisters, no drainage from the penis, no skin changes, normal testicular lie, normal cremasteric reflex. UA is within normal limits. G/C sent from patient's urine, offered patient prophylactic treatment and he politely declined and states that he will await his testing. I discussed with patient the importance of following up with urology given bloody ejaculate. There are no clinical signs of orchitis, epididymitis, or testicular torsion. Advised patient Please follow-up with a primary care doctor. Please follow-up with a urologist. Please follow-up with the health department or clinic for full STD panel if you are concerned for STDs. Return to emergency room for any new or worsening symptoms. 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 Critical care attestation.: If time is entered above; I have spent that time in minutes in the direct care of this critically ill patient, excluding procedure time. ED Disposition Clinical Impression: Bloody ejaculation Disposition: HOME / SELF CARE / HOMELESS Is pt being admited?: No Does the pt Need Aspirin: No Condition: Stable Additional Instructions: Please follow-up with a primary care doctor. Please follow-up with a urologist. Please follow-up with the health department or clinic for full STD panel if you are concerned for STDs. Return to emergency room for any new or worsening symptoms. 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 walk in clinic: [facility] Address: [address] [place] [address], [place] [address] Referrals: PRIMARY CAREMD [Primary Care Provider] - 3-5 Days ROBERTA NG MD [Staff Physician] - 3-5 Days [facility] Depart [Outside] - 3-5 Days Time of Disposition: 19:18 Print Language: GIBRALT[place]
[2021-04-17 19:12] LABS: Bilirubin,Urine NEG (Negative); Blood,Urine NEG (Negative); Color,Urine Colorless (Yellow); Protein,Urine <15 mg/dL mg/dL (Negative); Urobilinogen,Urine < 2.0 mg/dL (<2.0)
== END 2021-04-17 22:02 | disposition home or self-care (01) ==
LOC: ED 17:39
DX: N53.19 Other ejaculatory dysfunction (principal); I10 Essential (primary) hypertension; J45.909 Unspecified asthma, uncomplicated; F17.200 Nicotine dependence, unspecified, uncomplicated
CPT/HCPCS: 81001; 87591; 99283

== ENCOUNTER 2021-09-09 03:39 | Emergency (ER) | payer SELFPAY ==
[2021-09-09] MEDS ORDERED: ceFAZolin/NS 1 GM/50 ML 1 GM/50 ML BAG IV ONE (03:50)
[2021-09-09] MEDS ORDERED: TETANUS,DIPH,PERTUSS(ACELL) VACCINE 0.5 ML SYRINGE IM ONE (03:50)
[2021-09-09] MEDS ORDERED: fentaNYL 100 MCG/2 ML INJ IV ONE (03:50)
[2021-09-09] MEDS ORDERED: ONDANSETRON 4 MG/2 ML INJ IV ONE (03:50)
[2021-09-09] MEDS ORDERED: SODIUM CHLORIDE 0.9% 1000 ML 1,000 ML IV ONE (03:51)
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
[2021-09-09 04:13] LABS: Basophils % (Auto) 0.4 % (0.0-1.8); Eosinophils % (Auto) 0.3 % (0.0-4.3); Hematocrit 42.2 % (35.5-45.6); Hemoglobin 14.3 gm/dl (11.8-15.2); Lymphocytes # (Auto) 2.5 K/mm3 (1.2-5.4); Lymphocytes % (Auto) 37.2 % (13.4-35.0); Mean Corpuscular HGB Conc 34 % (32-34); Mean Corpuscular Volume 97 fl (84-94); Monocytes # (Auto) 0.6 K/mm3 (0.0-0.8); Monocytes % (Auto) 9.1 % (0.0-7.3); Platelet Count 210 K/mm3 (140-440); Red Blood Count 4.33 M/mm3 (3.65-5.03); Red Cell Distribution Width 13.9 % (13.2-15.2)
[2021-09-09 04:32] LABS: Blood Urea Nitrogen 11 mg/dL (9-20); Calcium 9.2 mg/dL (8.4-10.2); Hemolysis Index 8
[2021-09-09 04:37] LABS: BUN/Creatinine Ratio 16
[2021-09-09] MEDS ORDERED: SODIUM CHLORIDE 0.9% IRR 500 ML BOTTLE IR ONE (05:39)
[2021-09-09] MEDS ORDERED: HYDROGEN PEROXIDE 118 ML SOLUTION ONE (05:53)
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
[2021-09-09 07:53] VITALS: BP 127/89
== END 2021-09-09 08:09 | disposition home or self-care (01) ==
LOC: ED 03:39
DX: S61.412A Laceration without foreign body of left hand, initial encounter (principal); F10.129 Alcohol abuse with intoxication, unspecified; J45.909 Unspecified asthma, uncomplicated; F17.200 Nicotine dependence, unspecified, uncomplicated; W26.9XXA Contact with unspecified sharp object(s), initial encounter; Y93.89 Activity, other specified; Y92.89 Other specified places as the place of occurrence of the external cause; Y99.8 Other external cause status; I10 Essential (primary) hypertension
CPT/HCPCS: 36415; 73201; 80048; 85025; 90471; 90715; 96365; 96375; 99284; J0690; J2405; J3010; J7030; Q9967; 80320; G0480